=== PATIENT | female | born 1985 | race Hispanic/Latino ===

== ENCOUNTER 2017-07-27 20:44 | Emergency (ER) | payer MEDICAID ==
[2017-07-27] MEDS ORDERED: NORCO 5/325 PO ONE (23:54)
[2017-07-27] MEDS ORDERED: XYLOCAINE 1% 20 mL INFILTRATI ONE (23:55)
[2017-07-27] MEDS ORDERED: BOOSTRIX IM ONE (23:55)
[2017-07-27] MEDS ORDERED: NACL 0.9% IR ONE (23:56)
--- NOTE | 2017-07-28 | Emergency Department Report ---
- General Chief complaint: Wound/Laceration Stated complaint: LEFT THUMB LACERATION Time Seen by Provider: 07/27/17 23:50 Source: patient Mode of arrival: Ambulatory Limitations: No Limitations - History of Present Illness Initial comments: 32 year-old female with no significant past medical history presents to the hospital complaining of laceration to left thumb that occurred prior to arrival. Patient is right-hand dominant. After opening a can she cut her left thumb on the rim of the top. She immediately irrigated the thumb with water. Denies tetanus within 10 years. Denies other injury. Pain is 6/10 in intensity , worse with palpation and movement. - Related Data Previous Rx's Medication Instructions Recorded Last Taken Type Ibuprofen [Motrin] 600 mg PO Q8H PRN #30 tablet 07/28/17 Unknown Rx traMADol [Ultram 50 MG tab] 50 mg PO Q6HR PRN #20 tablet 07/28/17 Unknown Rx Allergies Allergy/AdvReac Type Severity Reaction Status Date / Time No Known Allergies Allergy Unverified 07/27/17 21:05 Abscess Boil HPI - HPI Chief Complaint: Wound/Laceration Stated Complaint: LEFT THUMB LACERATION Time Seen by Provider: 07/27/17 23:50 Home Medications: Previous Rx's Medication Instructions Recorded Last Taken Type Ibuprofen [Motrin] 600 mg PO Q8H PRN #30 tablet 07/28/17 Unknown Rx traMADol [Ultram 50 MG tab] 50 mg PO Q6HR PRN #20 tablet 07/28/17 Unknown Rx Allergies/Adverse Reactions: Allergies Allergy/AdvReac Type Severity Reaction Status Date / Time No Known Allergies Allergy Unverified 07/27/17 21:05 ED Review of Systems ROS: Stated complaint: LEFT THUMB LACERATION Other details as noted in HPI Comment: All other systems reviewed and negative Other: Constitutional: No fevers chills Eyes: No eye pain visual changes ENT: No ear pain or throat pain Neck: Denies pain Respiratory: Denies cough wheezing shortness of breath Cardiovascular: Denies chest pain, palpitations, syncope GI: Denies abdominal pain, nausea, vomiting : Denies dysuria, Musculoskeletal: Denies back pain Skin: As per HPI Neurologic: Denies headache, numbness, weakness Psychiatric: Denies suicidal ideation, hallucinations ED Past Medical Hx - Past Medical History Previous Medical History?: No - Surgical History Additional Surgical History: D & C - Social History Smoking Status: Current Every Day Smoker Substance Use Type: None - Medications Home Medications: Home Medications Medication Instructions Recorded Confirmed Last Taken Type Ibuprofen [Motrin] 600 mg PO Q8H PRN #30 tablet 07/28/17 Unknown Rx traMADol [Ultram 50 MG tab] 50 mg PO Q6HR PRN #20 tablet 07/28/17 Unknown Rx ED Physical Exam - General Limitations: No Limitations - Other Other exam information: General: No limitations, patient is alert in no acute distress Head exam: Atraumatic, normocephalic Eyes exam: Normal appearance ENT: Moist mucous membrane Neck exam: Normal inspection, full range of motion Respiratory exam: Clear to auscultation bilateral, no wheezes, rales, crackles Cardiovascular: Normal rate and rhythm Abdomen: Soft, nondistended, and nontender, with normal bowel sounds, no rebound, or guarding Extremity: 4.5 cm laceration to medial thumb with minimal bleeding. Wound is superficial into the subcutaneous fat and there is no tendon involvement. Full range of motion of thumb. 2+ Refill Back: Normal Inspection, full range of motion, no tenderness Neurologic: Alert, oriented x3, cranial nerves intact, no motor or sensory deficit Psychiatric: normal affect, normal mood Skin: 4.5 cm thumb laceration ED Course Vital Signs 07/27/17 07/28/17 07/28/17 21:05 00:00 00:58 Temperature 98.5 F 98.5 F Pulse Rate 118 H 72 Respiratory 18 16 16 Rate Blood Pressure 129/81 Blood Pressure 118/70 [Left] O2 Sat by Pulse 99 100 Oximetry - Laceration /Wound Repair Left Hand Wound Location: upper extremity (left medial hinson thumb) Wound Length (cm): 4 (4.5cm) Wound's Depth, Shape: linear Wound Explored: no foreign body removed Irrigated w/ Saline (ccs): 500 Betadine Prep?: Yes Anesthesia: 1% Lidocaine Volume Anesthetic (ccs): 6 Wound Debrided: minimal Wound Repaired With: sutures Suture Size/Type: 4:0, nylon Number of Sutures: 9 Layer Closure?: No Sterile Dressing Applied?: Yes ED Medical Decision Making - Medical Decision Making Patient tolerated repair well. Dressing applied prior to discharge. - Differential Diagnosis laceration, tendon injury Critical Care Time: No Critical care attestation.: If time is entered above; I have spent that time in minutes in the direct care of this critically ill patient, excluding procedure time. ED Disposition Clinical Impression: Thumb laceration Disposition: TO HOME OR SELFCARE Is pt being admited?: No Does the pt Need Aspirin: No Condition: Stable Instructions: Laceration (ED) Additional Instructions: You must have your stitches removed within 7-10 days. You may return to the ER or follow up with your primary care doctor. Continue to monitor for signs of infection as indicated by discharge instructions. Please return if symptoms worsen as indicated by discharge instructions. Prescriptions: Ibuprofen [Motrin] 600 mg PO Q8H PRN #30 tablet PRN Reason: Pain traMADol [Ultram 50 MG tab] 50 mg PO Q6HR PRN #20 tablet PRN Reason: Pain Referrals: PRIMARY CARE, [Primary Care Provider] - 7-10 days TISH PELLETIER JR, MD [Staff Physician] - 7-10 days Time of Disposition: 01:02
[2017-07-28 00:59] VITALS: BP 118/70
== END 2017-07-28 01:31 | disposition home or self-care (01) ==
LOC: ED 20:44
DX: S61.012A Laceration without foreign body of left thumb without damage to nail, initial encounter (principal); F17.200 Nicotine dependence, unspecified, uncomplicated; W26.8XXA Contact with other sharp object(s), not elsewhere classified, initial encounter; Y93.89 Activity, other specified; Y92.89 Other specified places as the place of occurrence of the external cause; Y99.8 Other external cause status
CPT/HCPCS: 90471; 90715